=== PATIENT | female | born 1975 | race Asian ===

== ENCOUNTER 2024-03-18 09:01 | Emergency (ER) | payer BC ==
[2024-03-18 09:09] VITALS: BMI 28.9
[2024-03-18] MEDS ORDERED: ACETAMINOPHEN INJECTION 100 ML IVPB ONE (09:45)
[2024-03-18] MEDS: SODIUM CHLORIDE 0.9% 500 ML INFUS.BAG IV ONE (10:14)
[2024-03-18] MEDS: ACETAMINOPHEN 1000 MG/100 ML BAG IVPB ONE (10:15)
[2024-03-18 10:17] LABS: HEMATOCRIT 39.6 % (32.4-45.2); HEMOGLOBIN 12.8 GM/dL (10.7-15.3); MCHC 32.3 g/dl (32.0-36.0); MEAN CELL VOLUME 65.1 fl (80-96); RBC 6.08 M/mm3 (3.60-5.2)
[2024-03-18 10:18] LABS: WHITE BLOOD COUNT 7.2 K/mm3 (4.0-10.0)
[2024-03-18 10:36] LABS: POTASSIUM 3.2 mmol/L (3.5-5.1)
[2024-03-18 10:38] LABS: CALCIUM 8.4 mg/dL (8.5-10.1)
[2024-03-18 10:39] LABS: ALBUMIN 3.6 g/dl (3.4-5.0); BLOOD UREA NITROGEN 6.5 mg/dL (7-18)
[2024-03-18 10:42] LABS: CREATININE 0.9 mg/dL (0.55-1.3)
[2024-03-18 10:43] LABS: BILIRUBIN,TOTAL 1.2 mg/dL (0.2-1)
[2024-03-18] MEDS ORDERED: POTASSIUM CHLORIDE ORAL LIQUID 20 MEQ/15 ML ONE (10:43)
[2024-03-18 10:44] LABS: TOT PROT 7.4 g/dl (6.4-8.2)
[2024-03-18] MEDS: POTASSIUM CHLORIDE ORAL LIQUID 20 MEQ/15 ML PO ONE (10:45)
[2024-03-18 11:41] LABS: ANISOCYTOSIS 2+; MACROCYTOSIS 0
[2024-03-18 12:00] VITALS: RESP 16
[2024-03-18] MEDS ORDERED: IBUPROFEN 600 MG TABLET (FP) PO ONE (12:02)
[2024-03-18] MEDS: IBUPROFEN 600 MG TABLET (FP) PO ONE (12:03)
[2024-03-18 15:55] VITALS: BP 100/65; PULSE 70; TEMP 97.5
== END 2024-03-18 15:54 | disposition home or self-care (01) ==
LOC: JER 09:01
PROC: 3E033NZ Introduction of Analgesics, Hypnotics, Sedatives into Peripheral Vein, Percutaneous Approach (ICD-10-PCS; principal; 2024-03-18)
DX: R50.9 Fever, unspecified (principal); R53.81 Other malaise; R53.1 Weakness; H53.8 Other visual disturbances; M79.10 Myalgia, unspecified site; R19.7 Diarrhea, unspecified; R00.0 Tachycardia, unspecified; B50.9 Plasmodium falciparum malaria, unspecified; Z20.822 Contact with and (suspected) exposure to COVID-19
CPT/HCPCS: 0241U-QW; 36415; 71045-TC-FY; 80053; 82962; 84703; 85025; 87207; 99284-25; J0131